=== PATIENT | female | born 1960 | race Caucasian/White ===

== ENCOUNTER 2016-11-09 04:45 | Emergency (ER) | payer OTHER ==
[~2016-11-09 04:45] MED LIST: ALBUTEROL HFA60 DOSE IN; METOPROLOL SUCC25 MG PO; NORCO1 TA1 PO; PREMARIN1.25 MG PO
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
--- NOTE | 2016-11-09 05:31 | ED MAR SUMMARY ---
..... Medication Administration Record [facility] [address] [place], [place] [id number] Patient: SANA MURILLO Visit ID: [id number] 56y, F Weight: 62.1 kg Height/Length: 66 in BMI: 22.1 ALLERGIES: Valium
--- NOTE | 2016-11-09 05:31 | ED MED RECONCILIATION SUMMARY ---
Patient: SANA MURILLO Medication Reconciliation Report [facility] VisitID: [id number] [address] [place] [address] 56y, F Registration Date/Time: 11/09/2016 Weight: 62.1 kg Height/Length: 66 in. BMI: 22.1 ALLERGIES: Valium The patient's Home Medications are listed below: NONE. The source(s) of the original Home Medication information: Not obtained. The following Medications were given to the patient in the Emergency Department: None. The following Medications were prescribed to the patient: None.
--- NOTE | 2016-11-09 05:31 | ED DISCHARGE INSTRUCTIONS ---
Patient: SANA MURILLO General Instructions [facility] VisitID: [id number] [place] [address] 56y, F Registration Date/Time: 11/09/2016 Uncomplicated alcohol intoxication. INSTRUCTIONS (CLEAR TO BOOK.). Warnings: GENERAL WARNINGS: Return or contact your physician immediately if your condition worsens or changes unexpectedly, if not improving as expected, or if other problems arise. Follow-up: Follow up with your doctor as needed. Understanding of the discharge instructions verbalized by patient. ADDITIONAL INFORMATION Alcohol Intoxication Alcohol intoxication occurs when you drink alcohol faster than your liver can remove it from your system. Alcohol intoxication affects your judgment and coordination. Very high blood alcohol levels can cause coma, very slow breathing and even . If you drink alcohol every day, this may gradually cause permanent damage to your liver, brain, heart, pancreas and other organs. Alcohol use during may cause permanent damage to the growing baby. Home Care: Do not drink any more alcohol. DO NOT DRIVE until all effects of the alcohol have worn off. Get lots of rest over the next few days. Drink plenty of water and other non-alcoholic liquids. Try to eat regular meals. If you have been drinking heavily on a daily basis, you may go through alcohol withdrawl. This is also called the shakes or DTs. The usual symptoms last 3 to 4 days and may include nervousness, shakiness, nausea, sweating or sleeplessness. During this time, it is best that you stay with family or friends who can help and support you. You can also admit yourself to a residential detox program. If your symptoms are severe, contact your doctor for medicines to help. Follow Up: If alcohol is causing a problem in your life, these and other organizations can help you: Alcoholics Anonymous offers support through a self-help fellowship. There are no dues or fees. See the Yellow Pages and call for time and place of meetings. www.aa.org [employer] offers support to families of alcohol users. 125.389.1044 www.al-anon.org National [place] On Alcoholism And Drug Dependence 438-161-3564 www.ncadd.org There are also inpatient or residential alcohol detox programs. Check the Internet or phonebook Yellow Pages under Drug Abuse & Treatment Centers. Get Prompt Medical Attention if any of the following occur: there) You have been given the following additional information: Alcohol Intoxication (Electronically signed by Gaby Scales MD 11/09/2016 5:11)
--- NOTE | 2016-11-09 05:31 | ED MAR SUMMARY ---
..... Medication Administration Record [facility] [address] [place], [place] [id number] Patient: SANA MURILLO Visit ID: [id number] 56y, F Weight: 62.1 kg Height/Length: 66 in BMI: 22.1 ALLERGIES: Valium
--- NOTE | 2016-11-09 05:31 | ED DISCHARGE INSTRUCTIONS ---
Patient: SANA MURILLO General Instructions [facility] VisitID: [id number] [place] [address] 56y, F Registration Date/Time: 11/09/2016 Uncomplicated alcohol intoxication. INSTRUCTIONS (CLEAR TO BOOK.). Warnings: GENERAL WARNINGS: Return or contact your physician immediately if your condition worsens or changes unexpectedly, if not improving as expected, or if other problems arise. Follow-up: Follow up with your doctor as needed. Understanding of the discharge instructions verbalized by patient. ADDITIONAL INFORMATION Alcohol Intoxication Alcohol intoxication occurs when you drink alcohol faster than your liver can remove it from your system. Alcohol intoxication affects your judgment and coordination. Very high blood alcohol levels can cause coma, very slow breathing and even . If you drink alcohol every day, this may gradually cause permanent damage to your liver, brain, heart, pancreas and other organs. Alcohol use during may cause permanent damage to the growing baby. Home Care: Do not drink any more alcohol. DO NOT DRIVE until all effects of the alcohol have worn off. Get lots of rest over the next few days. Drink plenty of water and other non-alcoholic liquids. Try to eat regular meals. If you have been drinking heavily on a daily basis, you may go through alcohol withdrawl. This is also called the shakes or DTs. The usual symptoms last 3 to 4 days and may include nervousness, shakiness, nausea, sweating or sleeplessness. During this time, it is best that you stay with family or friends who can help and support you. You can also admit yourself to a residential detox program. If your symptoms are severe, contact your doctor for medicines to help. Follow Up: If alcohol is causing a problem in your life, these and other organizations can help you: Alcoholics Anonymous offers support through a self-help fellowship. There are no dues or fees. See the Yellow Pages and call for time and place of meetings. www.aa.org [employer] offers support to families of alcohol users. 769.328.9562 www.al-anon.org National [place] On Alcoholism And Drug Dependence 198-366-2057 www.ncadd.org There are also inpatient or residential alcohol detox programs. Check the Internet or phonebook Yellow Pages under Drug Abuse & Treatment Centers. Get Prompt Medical Attention if any of the following occur: there) You have been given the following additional information: Alcohol Intoxication (Electronically signed by Gaby Scales MD 11/09/2016 5:11)
--- NOTE | 2016-11-09 05:31 | ED MED RECONCILIATION SUMMARY ---
Patient: SANA MURILLO Medication Reconciliation Report [facility] VisitID: [id number] [address] [place] [address] 56y, F Registration Date/Time: 11/09/2016 Weight: 62.1 kg Height/Length: 66 in. BMI: 22.1 ALLERGIES: Valium The patient's Home Medications are listed below: NONE. The source(s) of the original Home Medication information: Not obtained. The following Medications were given to the patient in the Emergency Department: None. The following Medications were prescribed to the patient: None.
== END 2016-11-09 05:28 ==
LOC: ED SRH 04:45
DX: F10.120 Alcohol abuse with intoxication, uncomplicated (principal); I10 Essential (primary) hypertension